=== PATIENT | male | born 1975 | race American Indian/Alaskan Native ===

== ENCOUNTER 2019-08-07 12:46 | Observation (INO) | payer OTHER ==
--- NOTE | 2019-08-07 13:50 | Event Note ---
ED Screening Note Date of service: 08/07/19 Time: 13:48 ED Screening Note: 44 y/o male comes in for dizziness, vomiting with nausea and weakness times 3 days. No PMH, No meds. No fevers. No pain. This initial assessment/diagnostic orders/clinical plan/treatment(s) is/are subject to change based on patients health status, clinical progression and re- assessment by fellow clinical providers in the ED. Further treatment and workup at subsequent clinical providers discretion. Patient/guardian urged not to elope from the ED as their condition may be serious if not clinically assessed and managed. Initial orders include:
[2019-08-07 14:18] LABS: Mean Corpuscular HGB Conc 29 % (32-34); Platelet Count 320 K/mm3 (140-440); Red Blood Count 2.37 M/mm3 (3.65-5.03); Red Cell Distribution Width 19.8 % (13.2-15.2)
[2019-08-07 14:20] LABS: Hematocrit 12.7 % (35.5-45.6); Hemoglobin 3.6 gm/dl (11.8-15.2); Mean Corpuscular Volume 54 fl (84-94)
[2019-08-07 14:30] LABS: Alanine Aminotransferase 6 units/L (7-56); Albumin 4.3 g/dL (3.9-5); BUN/Creatinine Ratio 13; Blood Urea Nitrogen 10 mg/dL (9-20); Calcium 8.9 mg/dL (8.4-10.2); Hemolysis Index 0
[2019-08-07 14:52] LABS: Anisocytosis 1+; Eosinophils % (Manual) 0 % (0.0-4.3); Poikilocytosis 1+; Total Cells Counted 100
[2019-08-07 14:53] LABS: Hypochromasia 3+; Ovalocytes Few; Platelet Estimate Consistent w Auto; Tear Drop Cells Few
[2019-08-07] MEDS ORDERED: SODIUM CHLORIDE 0.9% 500 ML 500 ML IV ONE ×2 (15:32→18:00)
--- NOTE | 2019-08-07 15:38 | Emergency Department Report ---
- General Chief complaint: Nausea/Vomiting/Diarrhea Stated complaint: V/WEAK/DIZZY Time Seen by Provider: 08/07/19 13:48 Source: patient, family Mode of arrival: Ambulatory Limitations: No Limitations - History of Present Illness Initial comments: Mr. Adame is a healthy 44-year-old male without significant past medical history who presents with lightheadedness fatigue nausea. For 1 month he has had shortness of breath with exertion. Decreased energy. Has had dark stools for quite some time. Recently noticed bright red blood with brown stool. Denies aspirin or ibuprofen use. Drinks alcohol only occasionally. Finally came today because he felt as if he was going to pass out. MD Complaint: generalized weakness -: Gradual, month(s) (1) Location: generalized Severity: severe Consistency: constant Worsens with: exertion Associated Symptoms: dark stools - Related Data Allergies Allergy/AdvReac Type Severity Reaction Status Date / Time No Known Allergies Allergy Unverified 08/07/19 12:49 ED Review of Systems ROS: Stated complaint: V/WEAK/DIZZY Other details as noted in HPI Comment: All other systems reviewed and negative Constitutional: malaise. denies: fever Cardiovascular: dyspnea on exertion. denies: chest pain Gastrointestinal: other (Bright red blood per rectum, dark stools) ED Past Medical Hx - Past Medical History Previous Medical History?: No - Surgical History Past Surgical History?: No - Social History Smoking Status: Never Smoker Substance Use Type: Alcohol ED Physical Exam - General Limitations: No Limitations General appearance: alert, in no apparent distress - Head Head exam: Present: atraumatic, normocephalic - Eye Eye exam: Present: normal appearance - ENT ENT exam: Present: mucous membranes moist - Neck Neck exam: Present: normal inspection, full ROM - Respiratory Respiratory exam: Present: normal lung sounds bilaterally. Absent: respiratory distress, wheezes, rales, rhonchi - Cardiovascular Cardiovascular Exam: Present: regular rate, normal rhythm, normal heart sounds. Absent: systolic murmur, diastolic murmur, rubs, gallop - GI/Abdominal GI/Abdominal exam: Present: soft, normal bowel sounds. Absent: distended, tenderness, guarding, rebound - Rectal Rectal exam: Present: deferred, heme (-) stool (Brown stool no gross blood), hemorrhoids - Extremities Exam Extremities exam: Present: normal inspection - Back Exam Back exam: Present: normal inspection - Neurological Exam Neurological exam: Present: alert, oriented X3 - Psychiatric Psychiatric exam: Present: normal affect, normal mood - Skin Skin exam: Present: warm, dry, intact, normal color. Absent: rash ED Course Vital Signs 08/07/19 08/07/19 12:50 15:00 Temperature 97.9 F Pulse Rate 84 90 Respiratory 20 21 Rate Blood Pressure 134/72 Blood Pressure 137/55 [Left] O2 Sat by Pulse 100 100 Oximetry ED Medical Decision Making - Lab Data Result diagrams: 08/07/19 14:00 08/07/19 14:00 Laboratory Results - last 24 hr 08/07/19 08/07/19 14:00 14:00 WBC 7.2 RBC 2.37 L Hgb 3.6 L* Hct 12.7 L* MCV 54 L MCH 15 L MCHC 29 L RDW 19.8 H Plt Count 320 Heard % (Auto) Archives Specialist Add Manual Diff Complete Total Counted 100 Seg Neuts % (Manual) 77.0 H Band Neutrophils % 0 Lymphocytes % (Manual) 17.0 Reactive Lymphs % (Man) 0 Monocytes % (Manual) 3.0 Eosinophils % (Manual) 0 Basophils % (Manual) 2.0 H Metamyelocytes % 1.0 Myelocytes % 0 Promyelocytes % 0 Blast Cells % 0 Nucleated RBC % Not Reportable Seg Neutrophils # Man 5.5 Band Neutrophils # 0.0 Lymphocytes # (Manual) 1.2 Abs React Lymphs (Man) 0.0 Monocytes # (Manual) 0.2 Eosinophils # (Manual) 0.0 Basophils # (Manual) 0.1 Metamyelocytes # 0.1 Myelocytes # 0.0 Promyelocytes # 0.0 Blast Cells # 0.0 WBC Morphology Not Reportable Hypersegmented Neuts Not Reportable Hyposegmented Neuts Not Reportable Hypogranular Neuts Not Reportable Smudge Cells Not Reportable Toxic Granulation Not Reportable Toxic Vacuolation Not Reportable Dohle Bodies Not Reportable Pelger-Huet Anomaly Not Reportable [place] Rods Not Reportable Platelet Estimate Consistent w auto Clumped Platelets Not Reportable Plt Clumps, EDTA Not Reportable Large Platelets Not Reportable Giant Platelets Not Reportable Platelet Satelliting Not Reportable Plt Morphology Comment Not Reportable RBC Morphology Not Reportable Dimorphic RBCs Not Reportable Polychromasia Not Reportable Hypochromasia 3+ Poikilocytosis 1+ Anisocytosis 1+ Microcytosis 3+ Macrocytosis Not Reportable Spherocytes Not Reportable Pappenheimer Bodies Not Reportable Sickle Cells Not Reportable Target Cells Not Reportable Tear Drop Cells Few Ovalocytes Few Helmet Cells Not Reportable [place] Bodies Not Reportable [place] Rings Not Reportable Master Cells Not Reportable Bite Cells Not Reportable Crenated Cell Not Reportable Elliptocytes Few Acanthocytes (Spur) Not Reportable Rouleaux Not Reportable Hemoglobin C Crystals Not Reportable Schistocytes Not Reportable Malaria parasites Not Reportable Bruce Bodies Not Reportable Hem Pathologist Commnt No Sodium 134 L Potassium 4.2 Chloride 100.3 Carbon Dioxide 21 L Anion Gap 17 BUN 10 Creatinine 0.8 Estimated GFR > 60 BUN/Creatinine Ratio 13 Glucose 124 H Calcium 8.9 Total Bilirubin 0.50 AST 12 ALT 6 L Alkaline Phosphatase 81 Total Protein 7.2 Albumin 4.3 Albumin/Globulin Ratio 1.5 - Medical Decision Making Mr. Adame presents with severe anemia hemoglobin 3.1 and chronic GI bleed likely upper with clinical history of dark stools and duration. I consulted waiter/waitress bar Dr. Frazier who recommended transfusion p.o. PPI and discharge once stable. GI evaluation can be done in the outpatient setting in this scenario. Admitted to hospital service in stable condition. Critical care attestation.: If time is entered above; I have spent that time in minutes in the direct care of this critically ill patient, excluding procedure time. ED Disposition Clinical Impression: Severe anemia, Chronic GI bleeding Disposition: OP ADMIT IP TO THIS HOSP Is pt being admited?: Yes Condition: Stable
[2019-08-07 16:20] LABS: Iron 8 ug/dL (49-181); Total Iron Binding Capacity 494 mcg/dL (250-450)
[2019-08-07 16:37] LABS: INR 1.09 (0.87-1.13); Partial Thromboplastin Time 20.1 Sec. (24.2-36.6)
[2019-08-07] MEDS ORDERED: FLU VACC QUAD 2019-20 (3 YR UP)/PF 60 MCG/0.5 ML SYRINGE IM ONE (17:13)
[2019-08-07] MEDS ORDERED: HYDROmorphone 1 MG/1 ML INJ IV PRN (17:14)
[2019-08-07] MEDS ORDERED: ACETAMINOPHEN 325 MG TAB PO PRN (17:14)
[2019-08-07] MEDS ORDERED: ONDANSETRON 4 MG/2 ML INJ IV PRN (17:14)
[2019-08-07] MEDS ORDERED: oxyCODONE /ACETAMINOPHEN 5-325MG TAB PO PRN (17:14)
[2019-08-07] MEDS ORDERED: D5W/0.9% NACL 1,000 ML IV SCH (18:00)
[2019-08-08 07:21] LABS: Hematocrit 21.5 % (35.5-45.6); Hemoglobin 6.7 gm/dl (11.8-15.2); Mean Corpuscular HGB Conc 31 % (32-34); Platelet Count 247 K/mm3 (140-440); Red Blood Count 3.29 M/mm3 (3.65-5.03)
[2019-08-08 07:49] LABS: BUN/Creatinine Ratio 10; Blood Urea Nitrogen 9 mg/dL (9-20); Calcium 8.6 mg/dL (8.4-10.2); Hemolysis Index 3
[2019-08-08 07:53] LABS: Mean Corpuscular Volume 65 fl (84-94); Red Cell Distribution Width 33.6 % (13.2-15.2)
[2019-08-08] MEDS ORDERED: SODIUM CHLORIDE 0.9% 500 ML 500 ML IV NR (08:26)
--- NOTE | 2019-08-08 08:29 | Event Note ---
Date: 08/07/19 See H/p in reports Symptomatic Anemia Lower GI bleed
[2019-08-08 08:43] LABS: Alanine Aminotransferase < 5 units/L (7-56)
[2019-08-08 09:32] LABS: Anisocytosis 1+; Basophils % (Manual) 0 % (0.0-1.8); Eosinophils % (Manual) 0 % (0.0-4.3); Total Cells Counted 100
[2019-08-08 09:33] LABS: Hypochromasia 3+; Platelet Estimate Consistent w Auto; Poikilocytosis 1+
--- NOTE | 2019-08-08 09:54 | History and Physical Report ---
CHIEF COMPLAINT: Nausea, vomiting, diarrhea. HISTORY OF PRESENT ILLNESS: A 44-year-old healthy male with no significant past medical history, comes in feeling lightheaded and nausea and fatigue. For 1 month, he has been short of breath on minimal exertion. The patient has been having dark stools off and on for the last couple of months. Also, noticed bright red blood. No rectal pain. Drinks alcohol occasionally. No NSAIDs. No BC powders. No aspirin or Goody powders. Never had any anemia or lower GI bleeding in the past. Feels lightheaded and short of breath on minimal exertion. Feels fatigued. No exacerbating or relieving factors. PAST MEDICAL HISTORY: None. PAST SURGICAL HISTORY: None. SOCIAL HISTORY: Does not smoke. Alcohol occasionally. FAMILY HISTORY: Hypertension. REVIEW OF SYSTEMS: Significant for feeling dizzy, lightheaded and generalized weakness, shortness of breath on minimal exertion. PHYSICAL EXAMINATION: GENERAL: Middle-aged male, cooperative during examination. VITAL SIGNS: Blood pressure is 136/80, temperature 99.2, pulse is 72, respirations are 16, sats are 99%. HEENT: Unremarkable. Pupils are equal and reactive. NECK: Supple, no lymphadenopathy, no thyromegaly. LUNGS: Clear to auscultation and percussion. Good air entry. CARDIOVASCULAR: S1, S2 heard. No gallop, no murmur, no rub. Apical impulse in left fifth intercostal space and midclavicular line. ABDOMEN: Soft and benign. No hepatosplenomegaly. No guarding, no rigidity. Hernial orifices are normal. EXTREMITIES: Good pedal pulses. No pedal edema. CENTRAL NERVOUS SYSTEM: Alert and oriented x4, nonfocal exam. SKIN: Normal. Mucous membranes are pale. LABORATORY DATA: Initial labs were significant for initial hemoglobin of 3.6 and hematocrit of 12.7. Electrolytes were sodium of 134. BUN and creatinine was 8 and 0.8. Glucose is 124. Iron is low, 8. Total iron binding capacity was 494, ferritin is 3.2, AST is 6. Albumin was 4.3. ASSESSMENT AND PLAN: 1. Acute symptomatic anemia. The patient needs 3-4 units of packed red blood cells and one more if necessary. We will aim for 8 grams of hemoglobin or more. 2. Lower gastrointestinal bleed. The patient needs endoscopy or colonoscopy. We will defer to GI. GI consult requested. IV Protonix initiated. 3. Deep venous thrombosis prophylaxis, SCDs only because of gastrointestinal bleed. The patient is on IV Protonix. JOB# [id number] DIOGO/MARITZA
[2019-08-08] MEDS ORDERED: PANTOPRAZOLE 40 MG INJ IV SCH (10:00)
--- NOTE | 2019-08-08 14:49 | Consultation ---
History of Present Illness - Reason for Consult Consult date: 08/08/19 GI bleed Requesting physician: MORGAN JACKSON - History of Present Illness Mr. 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 He presented to the emergency room due to a several week history of progressive fatigue and weakness. On admission, he was found to have a hemoglobin of 3.5 with an MCV of 54. He also complained of recent rectal bleeding with bright red blood per rectum for several days. Patient has a 7 to 10-year history of intermittent rectal bleeding occurring approximately once a month and lasting 3 or 4 days at a time. He notes that he will have bright red blood, with the blood filling the bowl at times. He notes that when he strains, the blood will sometimes spread out. Bowel movements otherwise are occurring once a day with straining at times. There has been no change in his bleeding pattern or his bowel movement pattern over the last several years. He denies any abdominal pain nausea vomiting or weight loss. He denies prior known history of anemia. Denies chest pain but has dyspnea on exertion. He denies aspirin or nonsteroidal usage. There is no history of reflux or peptic ulcer disease. There is no significant history of alcohol abuse, and no history of liver disease. Medications were reviewed. Past History Past Medical History: No medical history Past Surgical History: No surgical history Social history: . denies: smoking, alcohol abuse Family history: no significant family history Medications and Allergies Allergies Allergy/AdvReac Type Severity Reaction Status Date / Time No Known Allergies Allergy Unverified 08/07/19 12:49 Active Meds: Active Medications Acetaminophen (Tylenol) 650 mg PO Q4H PRN PRN Reason: Pain MILD(1-3)/Fever >100.5/BARNEY Last Admin: 08/08/19 12:02 Dose: 650 mg Documented by: Hydromorphone HCl (Dilaudid) 0.5 mg IV Q3H PRN PRN Reason: Pain , Severe (7-10) Dextrose/Sodium Chloride (D5ns) 1,000 mls @ 42 mls/hr IV DIRECT YOLANDA Sodium Chloride (Nacl 0.9% 500 Ml) 500 mls @ 0 mls/hr IV ONCE NR Stop: 08/09/19 08:25 Last Admin: 08/08/19 12:05 Dose: 50 mls/hr Documented by: Ondansetron HCl (Zofran) 4 mg IV Q8H PRN PRN Reason: Nausea And Vomiting Oxycodone/Acetaminophen (Percocet 5/325) 1 tab PO Q6H PRN PRN Reason: Pain, Moderate (4-6) Pantoprazole Sodium (Protonix) 40 mg IV BID [facility] Last Admin: 08/08/19 12:03 Dose: 40 mg Documented by: Sodium Chloride (Sodium Chloride Flush Syringe 10 Ml) 10 ml IV BID [facility] Last Admin: 08/08/19 12:03 Dose: 10 ml Documented by: Sodium Chloride (Sodium Chloride Flush Syringe 10 Ml) 10 ml IV PRN PRN PRN Reason: LINE FLUSH Review of Systems All systems: negative (as noted) Exam - Constitutional Vitals: Temp Pulse Resp BP Pulse Ox 99.4 F 78 18 135/81 96 08/08/19 14:34 08/08/19 14:34 08/08/19 14:34 08/08/19 14:34 08/08/19 14:34 General appearance: Present: no acute distress - EENT Eyes: Present: PERRL, EOM intact ENT: hearing intact - Respiratory Respiratory effort: normal Respiratory: bilateral: CTA - Cardiovascular Rhythm: regular Heart Sounds: Present: S1 & S2 - Extremities Extremities: No edema - Abdominal General gastrointestinal: Present: soft, non-tender, normal bowel sounds - Rectal Rectal Exam: hemorrhoids (Moderate ext hemorrhoids, light brown stool, no masses, but palpated a likely hypertrophied anal papilla), stool brown Results - Labs CBC & Chem 7: 08/08/19 06:58 08/08/19 06:58 Labs: Abnormal lab results 08/07/19 08/07/19 08/07/19 Range/Units 14:00 15:40 15:40 RBC (3.65-5.03) M/mm3 Hgb (11.8-15.2) gm/dl Hct (35.5-45.6) % MCV (84-94) fl MCH (28-32) pg MCHC (32-34) % RDW (13.2-15.2) % Seg Neuts % (Manual) 77.0 H (40.0-70.0) % Basophils % (Manual) 2.0 H (0.0-1.8) % APTT (24.2-36.6) Sec. Carbon Dioxide (22-30) mmol/L Glucose (75-100) mg/dL Iron 8 L (49-181) ug/dL TIBC 494 H (250-450) mcg/dL Ferritin (13.0-400.0) ng/mL Total Bilirubin (0.1-1.2) mg/dL ALT (7-56) units/L Crossmatch See Detail 08/07/19 08/07/19 08/08/19 Range/Units 15:40 16:07 06:58 RBC 3.29 L (3.65-5.03) M/mm3 Hgb 6.7 L D (11.8-15.2) gm/dl Hct 21.5 L D (35.5-45.6) % MCV 65 L (84-94) fl MCH 20 L (28-32) pg MCHC 31 L (32-34) % RDW 33.6 H (13.2-15.2) % Seg Neuts % (Manual) 73.0 H (40.0-70.0) % Basophils % (Manual) (0.0-1.8) % APTT 20.1 L (24.2-36.6) Sec. Carbon Dioxide (22-30) mmol/L Glucose (75-100) mg/dL Iron (49-181) ug/dL TIBC (250-450) mcg/dL Ferritin 3.2 L (13.0-400.0) ng/mL Total Bilirubin (0.1-1.2) mg/dL ALT (7-56) units/L Crossmatch 08/08/19 Range/Units 06:58 RBC (3.65-5.03) M/mm3 Hgb (11.8-15.2) gm/dl Hct (35.5-45.6) % MCV (84-94) fl MCH (28-32) pg MCHC (32-34) % RDW (13.2-15.2) % Seg Neuts % (Manual) (40.0-70.0) % Basophils % (Manual) (0.0-1.8) % APTT (24.2-36.6) Sec. Carbon Dioxide 20 L (22-30) mmol/L Glucose 115 H (75-100) mg/dL Iron (49-181) ug/dL TIBC (250-450) mcg/dL Ferritin (13.0-400.0) ng/mL Total Bilirubin 2.00 H (0.1-1.2) mg/dL ALT < 5 L (7-56) units/L Crossmatch Assessment and Plan 1. Iron deficiency anemia - patient has profound iron deficiency anemia likely due to intermittent rectal bleeding on a monthly basis occurring for many years. At this point, would transfuse him to a safe level, and discharge to home on oral iron. He can then be monitored as an outpatient. 2. Hematochezia -history and exam most consistent with hemorrhoidal bleeding as the etiology. There is no evidence of active bleeding at present. He can be discharged home on a high-fiber diet, and follow-up with us as an outpatient for a colonoscopy. Subsequently, if dietary intervention is ineffective, and there are no internal hemorrhoids amenable to banding, or mass lesions that need to be addressed, surgical management of hemorrhoids may be warranted.
[2019-08-08 18:18] VITALS: BP 144/86
--- NOTE | 2019-08-08 18:47 | Discharge Summary ---
Providers - Providers Date of Admission: 08/07/19 15:55 Date of discharge: 08/08/19 Attending physician: CHRIS TRINH 08/07/19 17:14 Consult to Physician [CONS] Routine Comment: Consulting Provider: ANUJ LAURA Physician Instructions: Reason For Exam: Lower GI bleed Primary care physician: CUSTODIAL OFFICER Hospitalization Condition: Stable Hospital course: Patient is admitted with hemoglobin of 3.7. Patient has been lightheaded and feeling weak and getting easily fatigued for the last 1 month. Patient has been having recurrent bright red blood from the anal region secondary to his hemorrhoids. Patient was transfused 4 units of packed red blood cells his hemoglobin and hematocrit is 7.3/22.8 . GI has seen the patient and they feel the bleeding is from the hemorrhoids. No need for colonoscopy at this point. GI follow-up as outpatient. Patient to be referred to anorectal surgeon Dr. Reyes. Disposition: DC-01 TO HOME OR SELFCARE Core Measure Documentation - Palliative Care Palliative Care/ Comfort Measures: Not Applicable - Core Measures Any of the following diagnoses?: none Exam - Constitutional Vitals: Temp Pulse Resp BP Pulse Ox 99.4 F 79 18 139/84 99 08/08/19 16:04 08/08/19 16:04 08/08/19 16:04 08/08/19 16:04 08/08/19 16:04 General appearance: Present: no acute distress, well-nourished - EENT Eyes: Present: PERRL ENT: hearing intact, clear oral mucosa - Neck Neck: Present: supple, normal ROM - Respiratory Respiratory effort: normal Respiratory: bilateral: CTA - Cardiovascular Heart rate: 78 Rhythm: regular Heart Sounds: Present: S1 & S2. Absent: rub, click - Extremities Extremities: no ischemia, pulses intact, pulses symmetrical, No edema Peripheral Pulses: within normal limits - Abdominal General gastrointestinal: Present: soft, non-tender, non-distended, normal bowel sounds Male genitourinary: Present: normal - Rectal Rectal Exam: hemorrhoids - Integumentary Integumentary: Present: clear, warm, dry - Musculoskeletal Musculoskeletal: gait normal, strength equal bilaterally - Psychiatric Psychiatric: appropriate mood/affect, intact judgment & insight - Neurologic Neurologic: CNII-XII intact, moves all extremities - Allied Health Allied health notes reviewed: nursing, case management Plan Diet: regular Follow up with: PRIMARY CARE, [Primary Care Provider] - 3-5 Days Forms: Work/School Excuse Out Patient, Work/School Release Form Prescriptions: Ferrous Fumarate/Ascorbic Acid [Joselyn-Sequels 65-25 mg Caplet] 1 each PO BID #60 tablet Pantoprazole Sodium [Protonix] 40 mg PO QDAY #30 granpkt.
[2019-08-08 19:30] LABS: Hematocrit 22.8 % (35.5-45.6); Hemoglobin 7.3 gm/dl (11.8-15.2); Mean Corpuscular HGB Conc 32 % (32-34); Platelet Count 238 K/mm3 (140-440); Red Blood Count 3.36 M/mm3 (3.65-5.03)
[2019-08-08 19:36] LABS: Mean Corpuscular Volume 68 fl (84-94); Red Cell Distribution Width 35.2 % (13.2-15.2)
[2019-08-08 20:46] LABS: Basophils % (Manual) 0 % (0.0-1.8); Eosinophils % (Manual) 0 % (0.0-4.3); Total Cells Counted 100
[2019-08-08 20:47] LABS: Anisocytosis 1+; Hypochromasia 3+; Poikilocytosis 1+
== END 2019-08-08 21:15 | disposition home or self-care (01) ==
LOC: ED 12:46 → 3A 15:55 → INTOOBSV 15:55 → 3A 16:13
PROVIDERS: ADMIT Internal Medicine; ATTEND Internal Medicine
DX: D64.9 Anemia, unspecified (principal); K92.2 Gastrointestinal hemorrhage, unspecified; K92.1 Melena; R11.2 Nausea with vomiting, unspecified; R42 Dizziness and giddiness
CPT/HCPCS: 36415; 36430; 80053; 82728; 83036; 83550; 85007; 85025; 85610; 85730; 86850; 86900; 86901; 86920; 90686; 96374; 99285; C9113; G0378; J7040; P9016